=== PATIENT | female | born 1950 ===

== ENCOUNTER 2017-07-13 07:32 | Emergency (ER) | payer MEDICARE ==
[2017-07-13 08:18] VITALS: O2SAT 97
[2017-07-13] MEDS ORDERED: Sodium Chloride 0.9% 1,000 ML IV ONE (08:39)
[2017-07-13] MEDS ORDERED: Pantoprazole 40 mg EC Tab PO STA (09:14)
[2017-07-13] MEDS ORDERED: Pantoprazole 40 mg EC Tab PO ONE (09:35)
[2017-07-13] MEDS ORDERED: Sodium Chloride 0.9% 1,000 ML ONE (09:36)
[2017-07-13 09:40] LABS: BASO % 0.2 % (0.0-2.0); EOS % 0.2 % (0.0-4.0); HEMOGLOBIN 13.8 g/dL (11.0-16.0); LYMPH # 0.3 K/uL (1.0-4.3); LYMPH % 2.7 % (20.0-40.0); MEAN CELL VOLUME 91.1 fL (81.0-99.0); MEAN CORPUSCULAR HEMOGLOBIN 31.5 pg (27.0-31.0); MEAN CORPUSCULAR HGB CONC 34.5 g/dL (33.0-37.0); MEAN PLATELET VOLUME 8.6 fL (7.2-11.7); MONO # 0.2 K/uL (0.0-0.8); MONO % 2.2 % (0.0-10.0); NEUT # 10.1 K/uL (1.8-7.0); NEUT % 94.7 % (50.0-75.0); PLATELET COUNT 292 K/uL (130-400); RED CELL DISTRIBUTION WIDTH 12.9 % (11.5-14.5); WHITE BLOOD COUNT 10.7 K/uL (4.8-10.8)
[2017-07-13 09:54] LABS: SQUAMOUS EPITHIAL 1 /hpf (0-5); URINE BILIRUBIN NEGATIVE (NEGATIVE); URINE BLOOD NEGATIVE (NEGATIVE); URINE CLARITY Hazy (Clear); URINE COLOR Yellow (YELLOW); URINE GLUCOSE (UA) NORMAL (Normal); URINE LEUKOCYTE ESTERASE NEG Leu/uL (Negative); URINE NITRATE NEGATIVE (NEGATIVE); URINE PROTEIN 1+ mg/dL (NEGATIVE); URINE UROBILINOGEN NORMAL mg/dL (0.2-1.0)
[2017-07-13 10:34] LABS: ALB/GLOB RATIO 1.2 (1.0-2.1); ALBUMIN 4.4 g/dL (3.5-5.0); ALT/SGPT 37 U/L (9-52); AMYLASE 79 U/L (30-110); AST/SGOT 30 U/L (14-36); BLOOD UREA NITROGEN 25 mg/dL (7-17); CALCIUM 9.2 mg/dl (8.6-10.4); GFR AFRICAN-AMERICAN > 60; GFR NON-AFRICAN AMERICAN > 60; LIPASE 36 U/L (23-300)
[2017-07-13 10:46] LABS: LYMPHOCYTE 1 % (20-40); MONOCYTE 3 % (0-10); NEUTROPHIL 96 % (50-75); PLATELET ESTIMATE NORMAL (NORMAL); TOTAL CELLS COUNTED 100
--- NOTE | 2017-07-13 10:50 | C.PDOC ---
History Of Present Illness 67 yo female come in for evaluation of epigastric pain associated with 3-4 episodes of non-bilious vomiting and 5-6 episodes of watery non-bloody diarrhea developed since 4 AM today. Pt denies recent travel or known sick contact. Deneis fever, chills, recent illness or abx use, denies sore throat, CP, SOB, dyspnea, cough, palpitation, hematemesis, melena, hematoschezia, back pain, UTI sx. Ambulate to Ed for evaluation, not in any apparent distress. Family member at bedside, saying " I feel my stomach is bloating too now". Time Seen by Provider: 07/13/17 08:30 Chief Complaint (Nursing): Abdominal Pain History Per: Patient Onset/Duration Of Symptoms: Gradual Past Medical History Reviewed: Historical Data, Nursing Documentation, Vital Signs Vital Signs: Last Vital Signs Temp 99.1 F 07/13/17 08:14 Pulse 87 07/13/17 08:14 Resp 20 07/13/17 08:14 BP 135/84 07/13/17 08:14 Pulse Ox 97 07/13/17 10:50 - Medical History PMH: HTN, Hypercholesterolemia Surgical History: No Surg Hx Family History: States: No Known Family Hx - Social History Hx Tobacco Use: No Hx Alcohol Use: No Hx Substance Use: No - Immunization History Hx Tetanus Toxoid Vaccination: No Hx Influenza Vaccination: Yes Hx Pneumococcal Vaccination: No Review Of Systems Except As Marked, All Systems Reviewed And Found Negative. Constitutional: Negative for: Fever, Chills, Malaise ENT: Negative for: Throat Pain Cardiovascular: Negative for: Chest Pain, Palpitations Respiratory: Negative for: Cough, Shortness of Breath, Wheezing Gastrointestinal: Positive for: Nausea, Vomiting, Abdominal Pain, Diarrhea. Negative for: Melena, Hematochezia, Hematemesis, Rectal Pain Genitourinary: Negative for: Dysuria, Frequency, Vaginal Discharge Musculoskeletal: Negative for: Neck Pain, Back Pain Skin: Negative for: Rash Neurological: Negative for: Weakness, Numbness, Headache, Dizziness Physical Exam - Physical Exam Appears: Well, Non-toxic, No Acute Distress Skin: Normal Color, Warm, Dry, No Rash Head: Normacephalic Eye(s): bilateral: PERRL Nose: No Flaring, No Discharge Oral Mucosa: Moist, No Drooling Throat: No Erythema, No Drooling Neck: Trachea Midline, Supple Cardiovascular: Rhythm Regular, No Murmur, No JVD Respiratory: No Decreased Breath Sounds, No Accessory Muscle Use, No Stridor, No Wheezing Gastrointestinal/Abdominal: Bowel Sounds (normal), Soft, Tenderness (mild epigastric), No Distention, No Guarding, No Rebound Back: No CVA Tenderness Extremity: Normal ROM, No Deformity, No Swelling Neurological/Psych: Oriented x3, Normal Speech ED Course And Treatment - Laboratory Results Result Diagrams: 07/13/17 09:33 07/13/17 10:10 Lab Interpretation: Normal O2 Sat by Pulse Oximetry: 97 Pulse Ox Interpretation: Normal Progress Note: On re-evaluation, pt is awake, comfortable, not in any apparent distress. Pt reports, mod improvement in sx after ED tx and request discharge now. Afebrile, hemodynamicaly stable. Pt able tolerate PO well in ED. PulseOx 97% RA. ENT: No acute findings. uvula midline, no edema. neck: Supple , (-) JVD, (-) carotid bruits B/L. CVS: (+)S1,S2, (-) murmur. Lungs: CTA B/L, BS equal B/L. Abd: benign, (-) guarding, (-) rebound, (-) RLQ or LLQ. Neurologicaly intact. Blood work review and appears normal. UA- normal study. Pt has clinical findings c/w epigastric pain, V/D. Pt advised. ref. to f/u with PMD in 1-2 days for re-eval. return if anty worsening or new changes. Disposition Counseled Patient/Family Regarding: Studies Performed, Diagnosis, Need For Followup, Rx Given - Disposition Referrals: Tigre Bae MD [Medical Doctor] - Disposition: HOME/ ROUTINE Disposition Time: 10:50 Condition: STABLE Additional Instructions: Encourage fluids for 1 day, no food. Take medication as prescribed BRAt diet for 1-2 days- banana, rice, apple sauce, toast. Advance as tolerated Follow up with PMD in 2-3 days for re-eavl. return to ED if any worsening or new changes. Prescriptions: Famotidine [Pepcid] 20 mg PO BID #10 tab Ondansetron ODT [Zofran ODT] 1 odt PO BID PRN #6 odt PRN Reason: Nausea/Vomiting Instructions: Viral Gastroenteritis Forms: [facility] ([place]) - Clinical Impression Clinical Impression: Nausea, Vomiting, Diarrhea
[2017-07-13 11:30] VITALS: BP 110/68; PULSE 73; RESP 18; TEMP 98.1
== END 2017-07-13 11:15 | disposition home or self-care (01) ==
LOC: C.ER 07:32
DX: R10.13 Epigastric pain (principal); R11.2 Nausea with vomiting, unspecified; R19.7 Diarrhea, unspecified
CPT/HCPCS: 80053; 81001; 82150; 83690; 85025; 87804; 96361; 96374; 96375; 99284; J2405; J7040